=== PATIENT | female | born 1975 | race American Indian/Alaskan Native ===

== ENCOUNTER 2016-09-14 17:05 | Outpatient (CLI) | payer MEDICAID ==
[2016-09-14 17:24] VITALS: BP 120/68
--- NOTE | 2016-09-15 07:34 | Ultrasound Report ---
BIOPHYSICAL PROFILE: INDICATION: Irregular heart rate. COMPARISON: None similar. TECHNIQUE: Transabdominal ultrasound with Doppler interrogation. 2 - breathing movements 2 - movements 2 - posture and tone 2 - Qualitative amniotic fluid volume 8 - TOTAL SCORE OF POSSIBLE 8 Heart Rate (bpm) 153
--- NOTE | 2016-09-15 07:35 | Ultrasound Report ---
OB LIMITED INDICATION: Irregular heart rate. COMPARISON: None similar at this institution. TECHNIQUE: Transabdominal grayscale ultrasound with Doppler interrogation. Gestation: [place]mazan Position: Cephalic Amniotic Fluid: WNL (7-24 cm) ADDIE = 20.9 cm Heart Rate: 153 BPM
== END 2016-09-14 19:10 | disposition home or self-care (01) ==
LOC: TRG 17:05
PROVIDERS: ATTEND Obstetrics & Gynecology
DX: O99.413 Diseases of the circulatory system complicating pregnancy, third trimester (principal); O47.03 False labor before 37 completed weeks of gestation, third trimester; Z3A.33 33 weeks gestation of pregnancy
CPT/HCPCS: 59025; 76815; 76819

== ENCOUNTER 2016-09-24 13:40 | Outpatient (CLI) | payer MEDICAID ==
[2016-09-24] MEDS ORDERED: LACTATED RINGERS 500 ML IV ONE (13:48)
[2016-09-24 14:59] LABS: Bacteria,Urine 1+ /HPF (Negative); Bilirubin,Urine NEG (Negative); Blood,Urine LG (Negative); Ketones,Urine NEG (Negative); Leukocyte Esterase,Urine TR (Negative); Mucus,Urine FEW /HPF; Nitrite,Urine NEG (Negative); Protein,Urine <15 mg/dL mg/dL (Negative); Urobilinogen,Urine < 2.0 mg/dL (<2.0)
[2016-09-24 15:07] VITALS: BP 123/70
[2016-09-24] MEDS ORDERED: TYLENOL ONE (15:38)
[2016-09-24] MEDS ORDERED: TYLENOL PO ONE (16:17)
== END 2016-09-24 16:38 | disposition home or self-care (01) ==
LOC: TRG 13:40
PROVIDERS: ATTEND Obstetrics & Gynecology
DX: O09.523 Supervision of elderly multigravida, third trimester (principal); O47.03 False labor before 37 completed weeks of gestation, third trimester; Z3A.35 35 weeks gestation of pregnancy
CPT/HCPCS: 59025; 81001; 96360; J7120

== ENCOUNTER 2016-10-05 17:04 | Outpatient (CLI) | payer MEDICAID ==
[2016-10-05 18:19] VITALS: BP 103/54
[2016-10-05] MEDS ORDERED: LACTATED RINGERS 1,000 ML IV ONE (19:08)
[2016-10-05] MEDS ORDERED: VISTARIL ONE (19:47)
[2016-10-05] MEDS ORDERED: BRETHINE ONE (19:47)
[2016-10-05] MEDS ORDERED: BRETHINE SUB-Q ONE (19:50)
[2016-10-05] MEDS ORDERED: VISTARIL PO ONE (19:50)
--- NOTE | 2016-10-06 08:27 | Ultrasound Report ---
ULTRASOUND BIOPHYSICAL PROFILE: History: heart decelerations Technique: Transabdominal ultrasound with Doppler interrogation. 2 - breathing movements 2 - movements 2 - posture and tone 2 - Qualitative amniotic fluid volume 8 - TOTAL SCORE OF POSSIBLE 8 Heart Rate (bpm) 165
--- NOTE | 2016-10-06 08:29 | Ultrasound Report ---
ULTRASOUND OB LIMITED History: heart decelerations Technique: Transabdominal ultrasound with Doppler interrogation. Gestation: Single Position: Cephalic Amniotic Fluid: Normal ADDIE = 19.0 cm Heart Rate: 165 BPM
== END 2016-10-05 20:44 | disposition home or self-care (01) ==
LOC: TRG 17:04
PROVIDERS: ATTEND Obstetrics & Gynecology
DX: O09.523 Supervision of elderly multigravida, third trimester (principal); O76 Abnormality in fetal heart rate and rhythm complicating labor and delivery; O47.03 False labor before 37 completed weeks of gestation, third trimester; Z3A.36 36 weeks gestation of pregnancy
CPT/HCPCS: 59025; 76815; 76819; J3105; J7120; Q0177

== ENCOUNTER 2016-10-19 13:55 | Outpatient (CLI) | payer MEDICAID ==
[2016-10-19 16:05] VITALS: BP 145/71
--- NOTE | 2016-10-19 16:59 | Ultrasound Report ---
OB LIMITED INDICATION: Possible spontaneous rupture of membranes. COMPARISON: 10/05/2016 TECHNIQUE: Transabdominal grayscale ultrasound with Doppler interrogation. Gestation: Almazan Position: Cephalic Amniotic Fluid: WNL (7-24 cm) ADDIE = 14.5 cm Heart Rate: 144 BPM
== END 2016-10-19 14:09 | disposition home or self-care (01) ==
LOC: TRG 13:55
PROVIDERS: ATTEND Obstetrics & Gynecology
DX: O09.523 Supervision of elderly multigravida, third trimester (principal); O47.1 False labor at or after 37 completed weeks of gestation; Z3A.38 38 weeks gestation of pregnancy
CPT/HCPCS: 59025; 76815

== ENCOUNTER 2016-10-20 05:09 | Inpatient (IN) | payer MEDICAID ==
[2016-10-20] MEDS ORDERED: PITOCin/NS 20 UNIT/1000ML DRIP 20,000 MILLIUNITS/1,000 ML BAG IV ONE (05:13)
[2016-10-20] MEDS ORDERED: MINERAL OIL PO PRN (05:42)
[2016-10-20] MEDS ORDERED: XYLOCAINE 2% INFILTRATI ONE (05:42)
[2016-10-20] MEDS ORDERED: ePHEDrine SULFATE IV PRN (05:42)
[2016-10-20] MEDS ORDERED: DULCOLAX PR PRN (05:51)
[2016-10-20] MEDS ORDERED: ZOFRAN IV PRN (05:51)
[2016-10-20] MEDS ORDERED: DERMOPLAST TP PRN (05:51)
[2016-10-20] MEDS ORDERED: TUCKS PAD TP PRN (05:51)
[2016-10-20] MEDS ORDERED: BENADRYL PO PRN (05:51)
[2016-10-20] MEDS ORDERED: TYLENOL PO PRN (05:51)
[2016-10-20] MEDS ORDERED: LANSINOH TP PRN (05:51)
[2016-10-20] MEDS ORDERED: PHENERGAN PO PRN (05:51)
[2016-10-20] MEDS ORDERED: PITOCin/NS 20 UNIT/1000ML DRIP 20 UNITS/1,000 ML BAG IV SCH (06:00)
[2016-10-20] MEDS ORDERED: LACTATED RINGERS 1,000 ML IV SCH (06:00)
[2016-10-20] MEDS ORDERED: SODIUM CHLORIDE FLUSH SYRINGE 10 ML IV NR (06:00)
[2016-10-20] MEDS ORDERED: MOTRIN PO SCH (06:00)
--- NOTE | 2016-10-20 06:02 | History and Physical Report ---
History of Present Illness Date of examination: 10/20/16 (pt fully dilated on arrival) Date of admission: 10/20/16 05:22 Chief complaint: ctx started @ 0300 History of present illness: EDC Confirmation: 10/28/2016 Gestational Age: 6 1/7 weeks Past History : 8 Term Births: 6 Premature Births: 0 Living Children: 6 Para: 6 Prev : 0 Aborta: 1 Elect. Ab: 1 # 1 Delivery date: 1995 Weeks Gestation: term labor: no Delivery type: Anesthesia type: epidural Delivery location: [facility] Sex: Female weight: 6#11 # 2 Delivery date: 1998 Weeks Gestation: term labor: no Delivery type: Anesthesia type: epidural Delivery location: [facility] Sex: Male weight: 7#11 # 3 Delivery date: 2002 Weeks Gestation: term labor: no Delivery type: Anesthesia type: epidural Delivery location: [facility] Sex: Female weight: 7#11 # 4 Delivery date: 2006 Weeks Gestation: term labor: no Delivery type: Anesthesia type: none Delivery location: [facility] Inf[facility] Sex: Male weight: 7#14 # 5 Delivery date: 2008 Weeks Gestation: term labor: no Delivery type: Anesthesia type: epidural Delivery location: [facility] Sex: Female weight: 7#12 # 6 Delivery date: 2012 Weeks Gestation: term labor: no Delivery type: Anesthesia type: epidural Delivery location: [facility] Sex: Female weight: 7#11 # 7 Weeks Gestation: early Delivery type: EAB Past Medical History: cyst in left breast near nipple - found on mammogram in [place] Past Surgical History: Negative Past Surgical History Past Medical History 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 Infection History Hx of STD: HPV HIV Risk Eval: no Hepatitis B Risk Eval: low risk Personal hx. of genital herpes: no Partner hx. of genital herpes: no Rash, Viral, or Febrile illness since last LMP? no Varicella/Chicken Pox Status: Previous Disease TB Risk: no Genetic History ADVANCED MATERNAL AGE Congenital Heart Defect: Mom: no Dad: no Fernanda Disease: Mom: no Dad: no Thalassemia Mom: no Dad: no Neural Tube Defect Mom: no Dad: no Down's Syndrome Mom: no Dad: no Bashir-Sachs Mom: no Dad: no Sickle Cell Disease/Trait Mom: no Dad: no Hemophilia Mom: no Dad: no Muscular Dystrophy Mom: no Dad: no Cystic Fibrosis Mom: no Dad: no Dukes Chorea Mom: no Dad: no Mental Retardation Mom: no Dad: no Fragile X Mom: no Dad: no Other Genetic/Chromosomal Disorder Mom: no Dad: no Child w/other defect Mom: no Dad: no Enviromental Exposures Xray Exposure: no Medication, drug, or alcohol use since LMP: no Chemical/Other Exposure: no Exposure to Cat Liter: no Hx of Parvovirus (Fifth Disease): no Occupational Exposure to Children: none Active Medications (reviewed today): None Current Allergies (reviewed today): No known allergies Laboratory Results Routine Urinalysis Leukocytes: negative Nitrite: negative Urobilinogen: negative Protein: negative Blood: negative Ketone: negative Bilirubin: negative Glucose: negative Urine HCG: positive Review of Systems General Denies fever, chills, sweats, anorexia, fatigue, weakness, malaise, weight loss and sleep disorder. Complains of nausea. Denies vomiting, headache, swelling of legs, abdominal pain, vaginal discharge, vaginal bleeding and contractions. Denies vaginal discharge, incontinence, dysuria, hematuria, urinary frequency, amenorrhea, menorrhagia, abnormal vaginal bleeding, pelvic pain, genital sores, decreased libido, painful periods, painful sex, urinary urgency, hot flashes, vaginal dryness, vaginal itching and vaginal odor. CV Denies chest pains, palpitations, syncope, dyspnea on exertion, orthopnea, PND and peripheral edema. Resp Denies cough, dyspnea at rest, excessive sputum, hemoptysis, wheezing and pleurisy. GI Denies nausea, vomiting, diarrhea, constipation, change in bowel habits, abdominal pain, melena, hematochezia, jaundice, gas/bloating, indigestion/ heartburn, dysphagia and odynophagia. Endo Denies cold intolerance, heat intolerance, polydipsia, polyphagia, polyuria and unusual weight change. Breast Denies left breast lump, right breast lump, nipple discharge, bloody discharge from nipple, breast pain, abnormal mammogram and breast enlargement. MS Denies back pain, joint pain, joint swelling, muscle cramps, muscle weakness, stiffness, arthritis, sciatica, restless legs, leg pain at night and leg pain with exertion. Derm Denies rash, itching, dryness and suspicious lesions. Neuro Denies paralysis, paresthesias, headache, seizures, tremors, vertigo, transient blindness, frequent falls, frequent headaches and difficulty walking. Psych Denies depression, anxiety, irritability and mood swings. Eyes Denies blurring, diplopia, irritation, discharge, vision loss, eye pain and photophobia. ENT Denies earache, ear discharge, tinnitus, decreased hearing, nasal congestion, nosebleeds, sore throat and hoarseness. Allergy Denies urticaria, allergic rash, hay fever and recurrent infections. Heme Denies abnormal bruising, bleeding and enlarged lymph nodes. PHYSICAL EXAM HEENT: PERRLA, normal conjunctiva, external nose and nasal mucosa normal, oropharynx clear Neck/Thyroid: supple, thyroid normal Skin no significant abnormal lesions or rashes Chest: respiratory effort normal, clear to auscultation Breasts: normal without skin changes or masses CV: regular, normal S1-S2, no murmur, no rub, no gallop Abdomen: normal bowel sounds, soft, nontender, no HSM Musculoskeletal: grossly normal ROM in joints, no joint tenderness or muscle weakness Neuro: grossly normal DTRs, sensation, strength, cranial nerves Extremities: no clubbing, cyanosis, or edema [employer] Exams Vulva/Vagina: No lesions, normal BUS, normal rugae Cervix: No lesions; no cervical motion tenderness Uterus: normal size and position, midline, mobile Fundal Ht: ~6 size: AGA FHT: 120s Adnexae: no masses or tenderness Rectovaginal: no masses or tenderness Past History - Obstetrical History Expected Date of Delivery: 10/28/16 Actual Gestation: 38 Week(s) 6 Day(s) : 8 Para: 6 Hx # Term Pregnancies: 6 Induced : 1 Number of Living Children: 6 Medications and Allergies Allergies Allergy/AdvReac Type Severity Reaction Status Date / Time No Known Allergies Allergy Verified 10/05/16 18:04 Home Medications Medication Instructions Recorded Confirmed Last Taken Type Preplus Ca-Fe 27 mg-FA 1 mg Tb 1 tab PO DAILY 0410/05/16 10/05/16 09:00 History 1 Active Meds: Active Medications Acetaminophen (Tylenol) 650 mg PO Q4H PRN PRN Reason: Pain MILD(1-3)/Fever >100.5/CASTRO Acetaminophen/Hydrocodone Bitart (Pomona 5/325) 2 each PO Q6H PRN PRN Reason: Pain, Moderate (4-6) Benzocaine/Menthol (Dermoplast) 1 spray TP PRN PRN PRN Reason: Episiotomy Pain Bisacodyl (Dulcolax) 10 mg TX BID PRN PRN Reason: Constipation Diphenhydramine HCl (Benadryl) 25 mg PO Q6H PRN PRN Reason: Itching Diphtheria/Tetanus/Acell Pertussis (Boostrix) 0.5 ml IM .ONCE ONE Stop: 10/21/16 05:52 Docusate Sodium (Colace) 100 mg PO BID JERONIMO Lactated Ringer's (Lactated Ringers) 1,000 mls @ 125 mls/hr IV DIRECT JERONIMO Oxytocin/Sodium Chloride (Pitocin/Ns 20 Unit/1000ml Drip) 20 units in 1,000 mls @ 125 mls/hr IV DIRECT JERONIMO Ibuprofen (Motrin) 800 mg PO Q8H JERONIMO Magnesium Hydroxide (Milk Of Magnesia) 30 ml PO HS PRN PRN Reason: Constipation Measles/Mumps/Rubella Vaccine Live (M-M-R Ii Vaccine) 0.5 ml SUB-Q .ONCE ONE Stop: 10/21/16 05:52 Methylergonovine Maleate (Methergine) 0.2 mg PO Q8HR JERONIMO Stop: 10/20/16 22:01 Mineral Oil (Mineral Oil) 30 ml PO QHS PRN PRN Reason: Constipation Multi-Ingredient Ointment (Lansinoh) 1 applic TP PRN PRN PRN Reason: Sore Nipples Multivitamins/Iron/Calcium ( Vitamin) 1 each PO QDAY JERONIMO Ondansetron HCl (Zofran) 4 mg IV Q8H PRN PRN Reason: Nausea And Vomiting Promethazine HCl (Phenergan) 25 mg PO Q6H PRN PRN Reason: Nausea And Vomiting Sodium Chloride (Sodium Chloride Flush Syringe 10 Ml) 10 ml IV PRN NR Witch Arely/Glycerin (Tucks Pad) 1 each TP PRN PRN PRN Reason: Hemorrhoid/cleansing/soothing - Physical Exam Breasts: Positive: deferred Cardiovascular: Regular rate, Normal S1, Normal S2 Lungs: Positive: Normal air movement Abdomen: Positive: normal appearance, soft, normal bowel sounds. Negative: distention, tenderness Genitourinary (Female): Positive: normal external genitalia, normal perenium Vulva: both: normal Vagina: Positive: normal moisture. Negative: discharge Cervix: Negative: lesion, discharge Uterus: Positive: normal size, normal contour Adnexa: both: normal Anus/Rectum: Positive: normal perianal skin, heme negative. Negative: rectal mass, hemorrhoids Extremities: Positive: edema Deep Tendon Reflex Grade: Normal +2 - Obstetrical FHR: category 1 Uterine Contraction Monitor Mode: External Cervical Dilatation: 10 Cervical Effacement Percentage: 100 station: -2 Uterine Contraction Pattern: Regular Uterine Contraction Intensity: Moderate Results All other labs normal. Laboratory Data-Patient Name: JOSE VASQUEZ Test Date Result Blood Type 04/06/2016 B Rh 04/06/2016 Positive Antibody Screen negative Rubella 04/06/2016 nonimmune Serology (RPR) 09/24/2016 NR HBsAg 04/06/2016 Negative Hemoglobin 07/31/2016 10.8 Hematocrit 07/31/2016 32.4 Platelets 04/06/2016 189 [id number] Chlamydia DNA 09/24/2016 Negative GC DNA/Culture 09/24/2016 Urine Culture 06/01/2016 Final report Group B Strep cult negative PAP 03/05/2016 Normal, Satisfactory HIV 09/24/2016 AFP/Quad Screen 06/01/2016 Glucola Test 3hr GTT (Fasting) 08/07/2016 110 1 hr 08/07/2016 185 2 hr 08/07/2016 156 3 hr 08/07/2016 124 [facility]-Patient Name:JOSE VASQUEZ Test Date Result Varicella Ab Sickle Cell 04/06/2016 Negative PPD Fibronectin Cystic Fibrosis Parvovirus TSH Free T4 Hepatitis C ALT AST Uric Acid Creatinine 24 hr Urine Protein LALO Assessment and Plan 41yo @ 38w6d GDM Glyburide (pt stopped her medication) Arrived to Triage @ 0500 fully dilated. GBS negative. Orders in EMR
--- NOTE | 2016-10-20 06:16 | Procedure Note ---
OB Delivery Note - Delivery Date of Delivery: 10/20/16 Scarrer: JOHN JEROME Estimated blood loss: 300cc - Vaginal Delivery presentation: vertex Delivery position: OA Intrapartum events: precipitous labor- <3hr, other(please specify) (GDM on glyburide) Delivery induction: none Delivery monitor: external FHT Route of delivery: Delivery placenta: spontaneous Delivery cord: 3 umbilical vessels Episiotomy: none Delivery laceration: none Anesthesia: none Delivery comments: live born female over intact perineum. Baby to mom's abdomen. Placenta and membrane delivered complete and intact, 3 vessel cord. Placenta to pathology. Pit IVFs. 8/9, EBL 300, wgt 9-4. Baby noted to have some shaking BS 46 - bottle provided, Dad feeding baby. Pt's BS 150 Mom and baby remain LDR stable. - Infant A at 1 minute: 8 at 5 minutes: 9 Infant Gender: Female (wgt 9-4)
[2016-10-20 06:28] LABS: Hematocrit 37.9 % (30.3-42.9); Hemoglobin 12.8 gm/dl (10.1-14.3); Mean Corpuscular HGB Conc 34 % (30-34); Mean Corpuscular Hemoglobin 34 pg (28-32); Mean Corpuscular Volume 100 fl (79-97); Platelet Count 158 K/mm3 (140-440); Red Cell Distribution Width 13.2 % (13.2-15.2); White Blood Count 15.8 K/mm3 (4.5-11.0)
[2016-10-20] MEDS: NORCO 5/325 PO PRN ×3 (08:23→20:06)
[2016-10-20] MEDS: METHERGINE PO SCH ×2 (08:23→22:44)
[2016-10-20] MEDS: COLACE PO SCH ×2 (11:06→22:44)
[2016-10-20] MEDS: PRENATAL VITAMIN PO SCH (11:06)
[2016-10-20] MEDS: MILK OF MAGNESIA PO PRN (17:18)
[2016-10-20 17:40] LABS: Hematocrit 34.7 % (30.3-42.9)
[2016-10-20] MEDS: MOTRIN PO SCH (22:45)
[2016-10-21] MEDS: MILK OF MAGNESIA PO PRN (01:22)
[2016-10-21] MEDS: ZOLOFT PO SCH ×2 (01:22→10:16)
[2016-10-21] MEDS: NORCO 5/325 PO PRN ×2 (02:48→16:33)
--- NOTE | 2016-10-21 02:49 | Event Note ---
Date: 10/21/16 received call from nurse earlier that patient reported feeling "down" and pt requested medication. Baby and in room with patient. Patient stated she had never felt this way before. Started on Zoloft. Will reevaluate during rounds in AM for any further needs.
[2016-10-21] MEDS ORDERED: M-M-R II VACCINE SUB-Q ONE (05:51)
[2016-10-21] MEDS ORDERED: BOOSTRIX IM ONE (05:51)
--- NOTE | 2016-10-21 06:43 | Progress Note ---
Assessment and Plan - Patient Problems (1) Spontaneous vaginal delivery Onset Date: ~10/20/16 Current Visit: Yes Status: Acute Plan to address problem: Pt resting C/O still feeling "blue" States she did feel better after she took the Zoloft. VSS FF below umb Lochia small perineum intact. H&H stable. Doing well s/p vag del with exception of poss depression. MH consult in orders. Will continue Zoloft. P: continue pathway. d/c tomorrow if stable made aware Subjective - Subjective Date of service: 10/21/16 (pt states she does feel better) Principal diagnosis: Day #1 s/p ; PP depression? Interval history: EDC Confirmation: 10/28/2016 Gestational Age: 6 1/7 weeks Past History : 8 Term Births: 6 Premature Births: 0 Living Children: 6 Para: 6 Prev : 0 Aborta: 1 Elect. Ab: 1 # 1 Delivery date: 1995 Weeks Gestation: term labor: no Delivery type: Anesthesia type: epidural Delivery location: [facility] Sex: Female weight: 6#11 # 2 Delivery date: 1998 Weeks Gestation: term labor: no Delivery type: Anesthesia type: epidural Delivery location: [facility] Infant Sex: Male weight: 7#11 # 3 Delivery date: 2002 Weeks Gestation: term labor: no Delivery type: Anesthesia type: epidural Delivery location: [facility] Sex: Female weight: 7#11 # 4 Delivery date: 2006 Weeks Gestation: term labor: no Delivery type: Anesthesia type: none Delivery location: [facility] Sex: Male weight: 7#14 # 5 Delivery date: 2008 Weeks Gestation: term labor: no Delivery type: Anesthesia type: epidural Delivery location: [facility] Inf[facility] Sex: Female weight: 7#12 # 6 Delivery date: 2012 Weeks Gestation: term labor: no Delivery type: Anesthesia type: epidural Delivery location: [facility] Sex: Female weight: 7#11 # 7 Weeks Gestation: early Delivery type: EAB Past Medical History: cyst in left breast near nipple - found on mammogram in [place] Past Surgical History: Negative Past Surgical History Past Medical History 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 Infection History Hx of STD: HPV HIV Risk Eval: no Hepatitis B Risk Eval: low risk Personal hx. of genital herpes: no Partner hx. of genital herpes: no Rash, Viral, or Febrile illness since last LMP? no Varicella/Chicken Pox Status: Previous Disease TB Risk: no Genetic History ADVANCED MATERNAL AGE Congenital Heart Defect: Mom: no Dad: no Fernanda Disease: Mom: no Dad: no Thalassemia Mom: no Dad: no Neural Tube Defect Mom: no Dad: no Down's Syndrome Mom: no Dad: no Bashir-Sachs Mom: no Dad: no Sickle Cell Disease/Trait Mom: no Dad: no Hemophilia Mom: no Dad: no Muscular Dystrophy Mom: no Dad: no Cystic Fibrosis Mom: no Dad: no Velia Chorea Mom: no Dad: no Mental Retardation Mom: no Dad: no Fragile X Mom: no Dad: no Other Genetic/Chromosomal Disorder Mom: no Dad: no Child w/other defect Mom: no Dad: no Enviromental Exposures Xray Exposure: no Medication, drug, or alcohol use since LMP: no Chemical/Other Exposure: no Exposure to Cat Liter: no Hx of Parvovirus (Fifth Disease): no Occupational Exposure to Children: none Active Medications (reviewed today): None Current Allergies (reviewed today): No known allergies Laboratory Results Routine Urinalysis Leukocytes: negative Nitrite: negative Urobilinogen: negative Protein: negative Blood: negative Ketone: negative Bilirubin: negative Glucose: negative Urine HCG: positive Review of Systems General Denies fever, chills, sweats, anorexia, fatigue, weakness, malaise, weight loss and sleep disorder. Complains of nausea. Denies vomiting, headache, swelling of legs, abdominal pain, vaginal discharge, vaginal bleeding and contractions. Denies vaginal discharge, incontinence, dysuria, hematuria, urinary frequency, amenorrhea, menorrhagia, abnormal vaginal bleeding, pelvic pain, genital sores, decreased libido, painful periods, painful sex, urinary urgency, hot flashes, vaginal dryness, vaginal itching and vaginal odor. CV Denies chest pains, palpitations, syncope, dyspnea on exertion, orthopnea, PND and peripheral edema. Resp Denies cough, dyspnea at rest, excessive sputum, hemoptysis, wheezing and pleurisy. GI Denies nausea, vomiting, diarrhea, constipation, change in bowel habits, abdominal pain, melena, hematochezia, jaundice, gas/bloating, indigestion/ heartburn, dysphagia and odynophagia. Endo Denies cold intolerance, heat intolerance, polydipsia, polyphagia, polyuria and unusual weight change. Breast Denies left breast lump, right breast lump, nipple discharge, bloody discharge from nipple, breast pain, abnormal mammogram and breast enlargement. MS Denies back pain, joint pain, joint swelling, muscle cramps, muscle weakness, stiffness, arthritis, sciatica, restless legs, leg pain at night and leg pain with exertion. Derm Denies rash, itching, dryness and suspicious lesions. Neuro Denies paralysis, paresthesias, headache, seizures, tremors, vertigo, transient blindness, frequent falls, frequent headaches and difficulty walking. Psych Denies depression, anxiety, irritability and mood swings. Eyes Denies blurring, diplopia, irritation, discharge, vision loss, eye pain and photophobia. ENT Denies earache, ear discharge, tinnitus, decreased hearing, nasal congestion, nosebleeds, sore throat and hoarseness. Allergy Denies urticaria, allergic rash, hay fever and recurrent infections. Heme Denies abnormal bruising, bleeding and enlarged lymph nodes. PHYSICAL EXAM HEENT: PERRLA, normal conjunctiva, external nose and nasal mucosa normal, oropharynx clear Neck/Thyroid: supple, thyroid normal Skin no significant abnormal lesions or rashes Chest: respiratory effort normal, clear to auscultation Breasts: normal without skin changes or masses CV: regular, normal S1-S2, no murmur, no rub, no gallop Abdomen: normal bowel sounds, soft, nontender, no HSM Musculoskeletal: grossly normal ROM in joints, no joint tenderness or muscle weakness Neuro: grossly normal DTRs, sensation, strength, cranial nerves Extremities: no clubbing, cyanosis, or edema [facility] Exams Vulva/Vagina: No lesions, normal BUS, normal rugae Cervix: No lesions; no cervical motion tenderness Uterus: normal size and position, midline, mobile Fundal Ht: ~6 size: AGA FHT: 120s Adnexae: no masses or tenderness Rectovaginal: no masses or tenderness Patient reports: appetite normal, voiding normally, pain well controlled, ambulating normally [place]: doing well Objective - Vital Signs Latest vital signs: Vital Signs Temp Pulse Pulse Resp BP BP Pulse Ox 10/21/16 04:00 98.6 F 65 16 111/68 10/21/16 00:00 98.6 F 65 16 101/59 10/20/16 19:30 98.6 F 66 16 110/70 10/20/16 17:20 98.2 F 64 18 107/60 10/20/16 07:50 97.6 F 66 18 137/65 10/20/16 07:15 61 100 10/20/16 07:11 68 116/60 10/20/16 07:10 63 100 10/20/16 07:05 75 100 10/20/16 07:00 68 98 10/20/16 06:57 96.8 F L 66 18 125/68 99 10/20/16 06:56 63 121/65 10/20/16 06:55 67 125/68 99 10/20/16 06:50 66 98 Intake and Output 10/20/16 10/20/16 10/21/16 14:59 22:59 06:59 Intake Total 1000 1400 Output Total 400 Balance -400 1000 1400 Intake: IV 1000 PITOCin/NS 20 UNIT/1000ML 1000 DRIP 20 units In 1,000 ml @ 125 mls/hr IV DIRECT JERONIMO Rx#:[id number] Oral 600 Intake, Free Water 800 Output: Urine 400 Void 400 Other: Total, Intake Amount 300 Total, Output Amount 400 # Voids Void 1 - Exam Breasts: Present: normal, Cardiovascular: Present: Regular rate Lungs: Present: Clear to auscultation, Normal air movement Abdomen: Present: normal appearance, soft Vulva: both: normal Uterus: Present: normal, fundal height below umbilicus Extremities: Present: normal Deep Tendon Reflex Grade: Normal +2 Incision: Present: normal - Labs Labs: Abnormal lab results 10/20/16 Range/Units 05:36 POC Glucose 150 H (70-105)
[2016-10-21] MEDS: PRENATAL VITAMIN PO SCH (10:15)
[2016-10-21] MEDS: COLACE PO SCH (10:15)
[2016-10-21] MEDS: MOTRIN PO SCH (10:21)
--- NOTE | 2016-10-21 14:57 | Consultation ---
History of Present Illness - Reason for Consult Consult date: 10/21/16 Reason for consult: psychiatric evaluation - Chief Complaint Chief complaint: 41 year old black female seen following term delivery of her 7th child. Psychiatry was consulted for concerns with post- depression. She was observed holding her and was observed to show small display of affection. Her fiance stepped out of the room for privacy. Ms. Kapoor expressed thoughts of guilt about not having an emotional condon with this child like she had with her others. She described her situation as unplanned and was not ready for another child. She states she wants her and is trying to condon with her. She reports having some sense of bonding during the but once her child was born, the sense of bonding decreased. She denies a history of depression, anxiety, or other mental illness. She denies SI/HI. She denies obsessive thoughts or preoccupations. No psychotic symptoms. She denies a history of abuse. Medications and Allergies Allergies Allergy/AdvReac Type Severity Reaction Status Date / Time No Known Allergies Allergy Verified 10/05/16 18:04 Home Medications Medication Instructions Recorded Confirmed Last Taken Type Preplus Ca-Fe 27 mg-FA 1 mg Tb 1 tab PO DAILY 10/05/16 10/20/16 1 Day Ago History Active Meds: Active Medications Acetaminophen (Tylenol) 650 mg PO Q4H PRN PRN Reason: Pain MILD(1-3)/Fever >100.5/CASTRO Last Admin: 10/21/16 00:57 Dose: 650 mg Acetaminophen/Hydrocodone Bitart (Maben 5/325) 2 each PO Q6H PRN PRN Reason: Pain, Moderate (4-6) Last Admin: 10/21/16 02:48 Dose: 2 each Benzocaine/Menthol (Dermoplast) 1 spray TP PRN PRN PRN Reason: Episiotomy Pain Last Admin: 10/20/16 08:24 Dose: 1 spray Bisacodyl (Dulcolax) 10 mg DE BID PRN PRN Reason: Constipation Diphenhydramine HCl (Benadryl) 25 mg PO Q6H PRN PRN Reason: Itching Docusate Sodium (Colace) 100 mg PO BID JERONIMO Last Admin: 10/21/16 10:15 Dose: 100 mg Oxytocin/Sodium Chloride (Pitocin/Ns 20 Unit/1000ml Drip) 20 units in 1,000 mls @ 125 mls/hr IV DIRECT JERONIMO Ibuprofen (Motrin) 800 mg PO Q8H JERONIMO Last Admin: 10/21/16 10:21 Dose: 800 mg Magnesium Hydroxide (Milk Of Magnesia) 30 ml PO HS PRN PRN Reason: Constipation Last Admin: 10/21/16 01:22 Dose: 30 ml Mineral Oil (Mineral Oil) 30 ml PO QHS PRN PRN Reason: Constipation Multi-Ingredient Ointment (Lansinoh) 1 applic TP PRN PRN PRN Reason: Sore Nipples Last Admin: 10/20/16 08:23 Dose: 1 applic Multivitamins/Iron/Calcium ( Vitamin) 1 each PO QDAY JERONIMO Last Admin: 10/21/16 10:15 Dose: 1 each Ondansetron HCl (Zofran) 4 mg IV Q8H PRN PRN Reason: Nausea And Vomiting Promethazine HCl (Phenergan) 25 mg PO Q6H PRN PRN Reason: Nausea And Vomiting Sertraline HCl (Zoloft) 50 mg PO QDAY [facility] Last Admin: 10/21/16 10:16 Dose: 50 mg Witch Arely/Glycerin (Tucks Pad) 1 each TP PRN PRN PRN Reason: Hemorrhoid/cleansing/soothing Last Admin: 10/20/16 08:23 Dose: 1 each Past psychiatric history - Past Medical History Past Medical History: other (6 previous term pregnancies. Has HPV) - past Psychiatric treatment and history psychiatric treatment history: none - Social History Social history: other (denies alcohol or drug use. lives with fiance and children) Mental Status Exam - Vital signs Last Vital Signs Temp 97.1 F L 10/21/16 09:01 Pulse 78 10/21/16 09:01 Resp 20 10/21/16 09:01 BP 114/66 10/21/16 09:01 Pulse Ox 100 10/20/16 07:15 - Exam Orientation: time, place, person Affect: other (congruent) Mood: anxious, other (guilt) Thought content: other (no SI/ no HI/ no preoccupations/ no obsessions) Thought Process: Intact Perceptions: none Speech: normal rate and pattern Concentration: focused Motor activity: normal Level of consciousness: alert Memory: Intact Sleep Symptoms: None Interaction: cooperative, pleasant Results Result Diagrams: 10/20/16 17:13 All other labs normal. Assessment and Plan Assessment and plan: Impression: depressive disorder. No acute safety concerns identified. No SI/no HI. No psychosis. No thought distortions. She wants to condon with her but is concerned it is not coming naturally. She has the support of her child's father. She is interested in outpatient therapy. Recommendations: Referrals to specialized therapy for mothers were provided by the mental health team. Patient informed to seek out help in the ER if her feelings worsen or she is having thoughts or harming herself or her child.
[2016-10-22] MEDS: MOTRIN PO SCH ×2 (01:40→09:38)
--- NOTE | 2016-10-22 07:31 | Discharge Summary ---
Providers - Providers Date of Admission: 10/20/16 05:22 Date of discharge: 10/22/16 (pt agrees to d/c) Attending physician: ADINA RAMÍREZ [facility]: Assessment and Plan Assessment and plan: Impression: depressive disorder. No acute safety concerns identified. No SI/no HI. No psychosis. No thought distortions. She wants to condon with her but is concerned it is not coming naturally. She has the support of her child's father. She is interested in outpatient therapy. Recommendations: Referrals to specialized therapy for mothers were provided by the mental health team. Patient informed to seek out help in the ER if her feelings worsen or she is having thoughts or harming herself or her child. Primary care physician: ADINA RAMÍREZ Hospitalization Reason for admission: active labor Delivery: Episiotomy: none Laceration: none Incision: normal Other procedures: none complications: other (PPD see note please) Discharge diagnosis: IUP at term delivered [place] baby: female Hospital course: uncomplicated vaginal delivery Pt w/o complaint this AM VSS FF below umb Lochia small perineum intact. no s/sx of anemia Doing well s/p vag del PPD noted seen by P: d/c today with instructions RTO 4 weeks RX Zoloft provided. Pt is to f/u with as instructed. List of resources provided. Condition at discharge: Good Disposition: DISCHARGED TO HOME OR SELFCARE - Discharge Diagnoses (1) Spontaneous vaginal delivery Status: Acute Comment: rto 4 weeks for PP care (2) depression Status: Acute Comment: call to begin out pt counseling resources provided Plan - Discharge Medications Prescriptions: Ibuprofen [Motrin 800 MG tab] 800 mg PO TID PRN #30 tablet PRN Reason: Pain Sertraline [Zoloft] 50 mg PO QDAY #30 tablet - Provider Discharge Summary Activity: routine, no sex for 6 weeks, no heavy lifting 4 weeks, no strenuous exercise Diet: routine Instructions: routine Additional instructions: [] Smoking cessation referral if applicable(refer to patient education folder for contact #) [] Refer to [facility] Booklet Call your doctor immediately for: * Fever > 100.5 * Heavy vaginal bleeding ( >1 pad per hour) * Severe persistent headache * Shortness of breath * Reddened, hot, painful area to leg or breast * Drainage or odor from incision. * Keep incision clean and dry at all times and follow doctor's instructions regarding bathing/showering - Follow up plan Follow up: ADINA RAMÍREZ MD [Primary Care Provider] - 11/19/16 (congratulations! please call [phone] to schedule your appointment in 4 weeks. call with concerns take medication as prescribed.)
[2016-10-22] MEDS: PRENATAL VITAMIN PO SCH (09:38)
[2016-10-22] MEDS: COLACE PO SCH (09:38)
[2016-10-22] MEDS: ZOLOFT PO SCH (09:38)
--- NOTE | 2016-10-22 12:21 | Progress Note ---
Subjective - Reason for Consult Consult date: 10/22/16 Reason for consult: Psychiatry Follow-up - Chief Complaint Chief complaint: "I am being discharged soon" 41 year old black female seen following term delivery of her 7th child. Psychiatry was consulted for concerns with post- depression. Today patient is calm and cooperative during assessment. Her boyfriend (Emmett) the child's father was at the bedside at the time of the assessment. She stated bonding with this child is a "little harder" because she had a difficult , but feels like it's getting better. She stated that she is breast feeding and this is something new for her, but she is getting used to it. She stated that she love her along with all her kids. She denies SI/HI's, AVH's, sleep disturbance, anxiety, and rate her depression 0/10, with 10 being the worse. She stated that she took Zoloft in the past and currently taking. She denies any side effects from the medication. The patient would like information about outpatient psy services and therapists in her local area. Mental Status Exam - Vital signs Last Vital Signs Temp 98 F 10/22/16 09:10 Pulse 68 10/22/16 09:10 Resp 20 10/22/16 09:10 BP 107/60 10/22/16 09:10 Pulse Ox 100 10/20/16 07:15 - Exam Narrative exam: MSE: Appearance: cooperative, calm Behavior: good eye contact Speech: regular rate and tone Mood: "I am doing well" Affect: mood congruent Thought Process: linear, goal directed Thought Content: denies SI/HI's and AVH's Motor Activity: lying in bed Cognition: a/ox 3 Insight: fair Judgment: fair Assessment and Plan Impression: 41 year old black female seen following term delivery of her 7th child. Psychiatry was consulted for concerns with post- depression. Today patient is calm and cooperative during assessment. Her boyfriend (Emmett) the child's father was at the bedside at the time of the assessment. She stated bonding with this child is a "little harder" because she had a difficult , but feels like it's getting better. Denies SI/HI's and AVH's. No acute safety concerns noted. Patient is pending discharge. Recommendation/Plan: Given outpatient psy services information so she can follow -up with a psychiatrist and therapist once discharged. Continue Zoloft 50 mg PO daily.
[2016-10-22 12:34] VITALS: BP 103/60
== END 2016-10-22 16:20 | disposition home or self-care (01) | DRG 775 ==
LOC: TRG 05:09 → LD 05:10 → TRG 05:21 → LD 05:22 → OB 08:12
PROVIDERS: ADMIT Obstetrics & Gynecology; ATTEND Obstetrics & Gynecology
PROC: 10E0XZZ Delivery of Products of Conception, External Approach (ICD-10-PCS; principal; 2016-10-20)
DX: O24.425 Gestational diabetes mellitus in childbirth, controlled by oral hypoglycemic drugs (principal); O62.3 Precipitate labor; F53 Mental and behavioral disorders associated with the puerperium, not elsewhere classified; O09.523 Supervision of elderly multigravida, third trimester; Z3A.38 38 weeks gestation of pregnancy; Z37.0 Single live birth
CPT/HCPCS: 36415; 82962; 85014; 85018; 85027; 86850; 86900; 86901; 88307; 90707; 99211; A6250; G0463; J2590

== ENCOUNTER 2016-12-17 09:05 | Day surgery (SDC) | payer MEDICAID ==
--- NOTE | 2016-12-17 07:55 | History and Physical Report ---
History of Present Illness Date of examination: 12/11/16 Date of admission: 12/17/16 Chief complaint: wants tubal ligation History of present illness: Pt desires BTL. All risk, benefits and alternatives were d/w pt and questions were addressed and answered. Pt advised of salpingectomy and current ACOG recommendations and she desires salpingectomy as means of tubal ligation. Consents were signed and given to pt to bring to hospital day of surgery. Visit Type: Pre-Op CC: no complaints. History of Present Illness: Patient presents for BTL preop, she has no complaints....Sofia Frankel Vital Signs: Patient Profile: 41 Years Old Female Height: 67 inches Weight: 189 pounds BMI: 29.60 BP sittin / 60 (left arm) Pt. in pain? no Vitals Entered By: Sofia Frankel (December 11, 2016 3:43 PM) Current Method of Contraception: None Date of Last Pap Smear: 03/05/2016 Past History : 8 Term Births: 7 Premature Births: 0 Living Children: 7 Para: 7 Prev : 0 Aborta: 1 Elect. Ab: 1 # 1 Delivery date: 1995 Weeks Gestation: term labor: no Delivery type: Anesthesia type: epidural Delivery location: [place] [facility] Sex: Female weight: 6#11 # 2 Delivery date: 1998 Weeks Gestation: term labor: no Delivery type: Anesthesia type: epidural Delivery location: [place] [facility] Sex: Male weight: 7#11 # 3 Delivery date: 2002 Weeks Gestation: term labor: no Delivery type: Anesthesia type: epidural Delivery location: [place] Sex: Female weight: 7#11 # 4 Delivery date: 2005 Weeks Gestation: term labor: no Delivery type: Anesthesia type: none Delivery location: [place] Sex: Male weight: 7#14 # 5 Delivery date: 2007 Weeks Gestation: term labor: no Delivery type: Anesthesia type: epidural Delivery location: [place] [facility] Sex: Female weight: 7#12 # 6 Delivery date: 2011 Weeks Gestation: term labor: no Delivery type: Anesthesia type: epidural Delivery location: [place] [facility] Sex: Female weight: 7#11 # 7 Delivery date: 10/20/2016 Weeks Gestation: 38.6 Delivery type: Vaginal Hours of labor: <3 hours Anesthesia type: none Delivery location: [facility] Sex: female weight: 9.25 Comments: gestational diabetes; 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 of genital herpes: no Partner hx. of genital herpes: no Hx of STD: HPV Active Medications (reviewed today): PLUS 27-1 MG TABS ( VIT-FE FUMARATE-FA) 1 po Current Allergies (reviewed today): No known allergies Past Medical History: Reviewed history from 03/05/2016 and no changes required: cyst in left breast near nipple - found on mammogram in [place] Past Surgical History: Reviewed history from 03/05/2016 and no changes required: Negative Past Surgical History Family History Summary: Reviewed history and no changes required: 12/17/2016 Aunt - Has Family History of Hypertension - Entered On: 03/05/2016 Social History: Reviewed history from 03/05/2016 and no changes required: Patient is single Smoking History: Patient has never smoked. 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: abnormal PAP smear Family/Genetic History: other (see hpi) Social history: no significant social history, single, other (see hpi) - Obstetrical History : 8 Medications and Allergies Allergies Allergy/AdvReac Type Severity Reaction Status Date / Time No Known Allergies Allergy Verified 12/09/16 14:09 Home Medications Medication Instructions Recorded Confirmed Last Taken Type Preplus Ca-Fe 27 mg-FA 1 mg Tb 1 tab PO DAILY 10/05/16 12/09/16 1 Day Ago History Review of Systems All systems: negative - Physical Exam Cardiovascular: Normal S1, Normal S2 Lungs: Positive: Clear to auscultation, Normal air movement Abdomen: Positive: normal appearance, soft. Negative: distention Genitourinary (Female): Positive: other (deferred until EUA) Extremities: Positive: normal Deep Tendon Reflex Grade: Normal +2 Results All other labs normal. Assessment and Plan - Patient Problems (1) Encounter for sterilization Status: Acute Plan to address problem: -admit and prepare for above stated procedure -consents signed -all questions were addressed and answered
[~2016-12-17 09:05] MED LIST: ANCEF/STERILE WATER 2 GM/20 ML 2 GM/20 ML SYRINGE IV NR
[2016-12-17] MEDS ORDERED: XYLOCAINE MPF 2% ONE (10:01)
[2016-12-17] MEDS ORDERED: ZEMURON IV ONE (10:02)
[2016-12-17] MEDS ORDERED: DILAUDID ONE ×2 (10:03→13:13)
[2016-12-17] MEDS ORDERED: DIPRIVAN 10 MG/ML IV ONE (10:03)
--- NOTE | 2016-12-17 10:30 | Anesthesia Day of Surgery ---
Anesthesia Day of Surgery - Day of Surgery Patient Examined: Yes Patient H&P Reviewed: Yes Patient is NPO: Yes
--- NOTE | 2016-12-17 10:30 | Anesthesia Consultation ---
Anesthesia Consult and Med Hx Date of service: 12/17/16 - Airway Anesthetic Teeth Evaluation: Good, Caps (lower front) ROM Head & Neck: Adequate Mental/Hyoid Distance: Adequate Mallampati Class: Class II Intubation Access Assessment: Good - Pulmonary Exam CTA: Yes - Cardiac Exam Cardiac Exam: RRR - Pre-Operative Health Status ASA Pre-Surgery Classification: ASA1 Proposed Anesthetic Plan: General (no previous anesthesia problems; pt 8 wks post - nursing - told to pump and dump for 24) - Pulmonary Hx Asthma: No COPD: No Hx Pneumonia: No - Cardiovascular System Hx Hypertension: No - Central Nervous System Hx Seizures: No Hx Psychiatric Problems: No - Endocrine Hx Renal Disease: No Hx End Stage Renal Disease: No Hx Hypothyroidism: No Hx Hyperthyroidism: No - Hematic Hx Anemia: No Hx Sickle Cell Disease: No - Other Systems Hx Alcohol Use: No Hx Cancer: No
[2016-12-17] MEDS ORDERED: PEPCID IV NR (11:00)
[2016-12-17] MEDS ORDERED: VERSED IV NR (11:00)
[2016-12-17] MEDS ORDERED: LACTATED RINGERS 1,000 ML IV SCH (11:00)
[2016-12-17] MEDS ORDERED: NACL 0.9% IR ONE (11:47)
[2016-12-17] MEDS ORDERED: ROBINUL ONE ×2 (11:52→12:01)
[2016-12-17] MEDS ORDERED: ZOFRAN ONE (12:01)
[2016-12-17] MEDS ORDERED: NEOSTIGMINE ONE (12:01)
[2016-12-17] MEDS ORDERED: DECADRON ONE (12:01)
[2016-12-17] MEDS ORDERED: LACTATED RINGERS 1,000 ML ONE (12:05)
--- NOTE | 2016-12-17 12:53 | Operative Report ---
Operative Report Operative Report: Date of procedure: 12/17/2016 Pre-operative diagnosis: Desires sterilization Post-operative diagnosis: Same Procedure name(s): Bilateral salpingectomy Surgeon: Dr. Pulido Appeals Officer: MIGUEL Anesthesia: Gen. EBL: Minimal Urine output: 200 mL of clear urine out at the beginning of the procedure and 600 mL out at the end of the procedure for a total of 800 mL during the procedure. Fluids: 900 mL Findings: Grossly normal fallopian tubes and ovaries bilaterally What appeared to be erythematous type lesions on the posterior portion of the fundus Small area of perforation at the fundus of the uterus. Indications: Patient presents for sterilization. All risks benefits and alternatives was discussed with the patient. As discussed with the patient's salpingectomy risk benefits of procedure. Patient desires salpingectomy. Consents were signed and placed on the chart. Procedure: Patient was taken to the operating room and which she was placed under general endotracheal anesthesia. Patient was then prepped and draped in sterile fashion and placed in dorsal lithotomy position in Harjit stirrups. Attention was then turned to the vagina in which a Humi uterine manipulator was placed. Patient underwent straight catheterization. Attention was then turned to the umbilicus and which an infraumbilical incision was made with the scalpel 5mm trocar was placed using direct visualization with the camera. Abdomen was then insufflated with gas. Under direct visualization a second 8 mm trocar was placed. A third 5 mm trocar was then introduced into the abdomen under direct visualization. The Leah LigaSure device was used to cauterize and excised great portion of fallopian tubes bilaterally. Portions of both tubes were passed off for pathology. There was an area that was noted at the fundus of the uterus but it appeared to be a partial perforation. This area was cauterized with the Bovie with excellent hemostasis noted. The abdomen was suctioned with all excess fluid removed. Patient was completely hemostatic. After tubal ligation was completed all instruments were removed from the abdomen under direct visualization. All gas was also released from the abdomen. The subcuticular fat was reapproximated with 2-0 Vicryl. The skin was approximated with 4-0 Monocryl in a subcuticular stitch. The patient tolerated procedure well. Sponge, lap, and needle counts were all correct x3 the patient was taken to the recovery room awake and in stable condition.
--- NOTE | 2016-12-17 12:53 | Short Stay Summary ---
Short Stay Documentation Date of service: 12/17/16 - History H&P: dictated Social history: no significant social history, single, other (see hpi) - Allergies and Medications Current Medications: Allergies No Known Allergies Allergy (Verified 12/09/16 14:09) Home Medications Medication Instructions Recorded Confirmed Last Taken Type Preplus Ca-Fe 27 mg-FA 1 mg Tb 1 tab PO DAILY 10/05/16 12/17/16 12/16/16 History Active Medications Lactated Ringer's (Lactated Ringers) 1,000 mls @ 125 mls/hr IV DIRECT JERONIMO Stop: 12/17/16 15:00 Last Admin: 12/17/16 10:57 Dose: 125 mls/hr Midazolam HCl (Versed) 2 mg IV PREOP NR Stop: 12/17/16 16:00 Last Admin: 12/17/16 10:57 Dose: 2 mg - Brief post op/procedure progress note Date of procedure: 12/17/16 Pre-op diagnosis: counter for sterilization Post-op diagnosis: same Procedure: Laparoscopic Bilateral salpingectomy Anesthesia: GETA Findings: See operative report Surgeon: ADRY TIMMONS Estimated blood loss: none Pathology: list (left and right fallopian tube) Specimen disposition: to lab Condition: stable - Hospital course Hospital course: She underwent above stated procedure. Procedure was not competent. Patient will be discharged all when she had met discharge criteria in the PACU. - Disposition Condition at discharge: Good Disposition: DC-01 TO HOME OR SELFCARE - Discharge Diagnoses (1) Encounter for sterilization Status: Acute Short Stay Discharge Plan Activity: no restrictions Diet: regular Wound: open to air Follow up with: ADRY TIMMONS MD [Staff Physician] - 7 Days Prescriptions: Ibuprofen [Motrin 800 MG tab] 800 mg PO Q8HR PRN #30 tablet PRN Reason: Pain oxyCODONE /ACETAMINOPHEN [Percocet 5/325] 1 tab PO Q4HR #30 tablet
[2016-12-17] MEDS ORDERED: ZOFRAN IV PRN (13:12)
[2016-12-17] MEDS ORDERED: DILAUDID IV PRN (13:12)
[2016-12-17] MEDS ORDERED: PERCOCET 5/325 PO ONE (14:31)
[2016-12-17 15:16] VITALS: BP 146/70
== END 2016-12-17 15:30 | disposition home or self-care (01) ==
LOC: OR 09:05
PROVIDERS: ATTEND Obstetrics & Gynecology
DX: Z30.2 Encounter for sterilization (principal); Z82.49 Family history of ischemic heart disease and other diseases of the circulatory system
CPT/HCPCS: 58670; 81025; 88302; J0690; J1100; J1170; J2250; J2405; J2704; J2710; J7120